=== PATIENT | male | born 1995 | race Caucasian/White ===

== ENCOUNTER 2017-04-19 06:08 | Observation (INO) | payer SELFPAY ==
[~2017-04-19 06:08] MED LIST: Etomidate 2 MG/ML 20 ML SDV IVPUSH ONE; Rocuronium 50 MG/5 ML Vial ONE; Succinylcholine 200 MG/10 ML MDV ONE
[2017-04-19] MEDS ORDERED: Ziprasidone Mesylate 20 MG Vial ONE (06:09)
[2017-04-19] MEDS ORDERED: Water For Injection, Sterile 20 ML ONE (06:10)
[2017-04-19] MEDS ORDERED: Ziprasidone Mesylate 20 MG Vial IM ONE ×2 (06:10→23:24)
[2017-04-19] MEDS ORDERED: Haloperidol Lactate 5 MG/ML SDV ONE ×2 (06:18→09:44)
[2017-04-19] MEDS ORDERED: Sodium Chloride 0.9% 1,000 ML IV ONE (06:19)
[2017-04-19] MEDS ORDERED: Haloperidol Lactate 5 MG/ML SDV IM ONE (06:20)
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
[2017-04-19] MEDS ORDERED: Propofol 200 MG/20 ML SDV ONE (06:25)
[2017-04-19] MEDS ORDERED: Bupivacaine 25%/EPINEPHrine/PF 0 ML ONE (07:06)
[2017-04-19 07:11] LABS: CHLORIDE,CL 104 mmol/L (98-107); SODIUM,NA 142 mmol/L (136-148)
[2017-04-19] MEDS ORDERED: fentaNYL 100 MCG/2 ML SDV ONE (07:30)
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
[2017-04-19] MEDS ORDERED: Neostigmine Methylsulfate 1 MG/ML 5 ML Syringe ONE (08:06)
[2017-04-19] MEDS ORDERED: Glycopyrrolate 0.2 MG/ML SDV ONE (08:06)
[2017-04-19] MEDS ORDERED: Bupivacaine 25%/EPINEPHrine/PF 30 ML ONE (08:16)
[2017-04-19] MEDS ORDERED: Phenylephrine/Normal Saline 100 MCG/ML 10 ML Syringe ONE (08:20)
[2017-04-19] MEDS ORDERED: Phenylephrine 10 MG in Sodium Chloride 0.9% 99 ML IV SCH (08:30)
[2017-04-19] MEDS ORDERED: HYDROmorphone 2 MG/ML SDV IVPUSH PRN (08:59)
[2017-04-19] MEDS ORDERED: Lactated Ringers 1,000 ML IV SCH (09:00)
--- NOTE | 2017-04-19 09:15 | PCM.PREANE ---
Preanesthetic Assessment - Anesthesia/Transfusion/Family Hx Anesthesia History: Unknown Type of Anesthesia Reaction: Unknown Family History of Anesthesia Reaction: Other (see below) (Unknown) - Review of Systems General: No Symptoms Pulmonary: Other (Ventilator) Cardiovascular: No Symptoms Gastrointestinal: No Symptoms Neurological: Confusion Other: Reports: None - Physical Assessment NPO Status Date: 04/19/17 NPO Status Time: 05:00 O2 Sat by Pulse Oximetry: 100 Respiratory Rate: 10 Vital Signs: Last Vital Signs Temp 97.9 F 04/19/17 08:33 Pulse 75 04/19/17 08:33 Resp 10 L 04/19/17 08:33 BP 80/32 L 04/19/17 08:33 Pulse Ox 100 04/19/17 08:33 ASA Class: 2E Mental Status: Alert & Oriented x3 Airway Class: Mallampati = 2 Dentition: Reports: Normal Dentition Thyro-Mental Finger Breadths: 3 Mouth Opening Finger Breadths: 3 ROM/Head Extension: Limited/Partial (C-collar in place) Lungs: Other (Ventilator) Cardiovascular: Regular Rhythm, Tachycardia - Lab Values: Laboratory Last Values WBC 3.32 K/uL (4.0-11.0) L 04/19/17 06:45 RBC 5.04 M/uL (4.50-5.90) 04/19/17 06:45 Hgb 15.3 g/dL (13.0-17.0) 04/19/17 06:45 Hct 42.9 % (38.0-50.0) 04/19/17 06:45 MCV 85.1 fL (80.0-98.0) 04/19/17 06:45 MCH 30.4 pg (27.0-32.0) 04/19/17 06:45 MCHC 35.7 g/dL (31.0-37.0) 04/19/17 06:45 RDW Std Deviation 39.0 fl (28.0-62.0) 04/19/17 06:45 RDW Coeff of Chiquita 13 % (11.0-15.0) 04/19/17 06:45 Plt Count 154 K/uL (150-400) 04/19/17 06:45 MPV 9.90 fL (7.40-12.00) 04/19/17 06:45 Neut % (Auto) 58.2 % (48.0-80.0) 04/19/17 06:45 Lymph % (Auto) 34.9 % (16.0-40.0) 04/19/17 06:45 [place] % (Auto) 4.8 % (0.0-15.0) 04/19/17 06:45 Eos % (Auto) 1.5 % (0.0-7.0) 04/19/17 06:45 Baso % (Auto) 0.6 % (0.0-1.5) 04/19/17 06:45 Neut # (Auto) 1.9 K/uL (1.4-5.7) 04/19/17 06:45 Lymph # (Auto) 1.2 K/uL (0.6-2.4) 04/19/17 06:45 [place] # (Auto) 0.2 K/uL (0.0-0.8) 04/19/17 06:45 Eos # (Auto) 0.1 K/uL (0.0-0.7) 04/19/17 06:45 Baso # (Auto) 0.0 K/uL (0.0-0.1) 04/19/17 06:45 Nucleated RBC % 0.0 /100WBC 04/19/17 06:45 Nucleated RBCs # 0 K/uL 04/19/17 06:45 Sodium 142 mmol/L (136-148) 04/19/17 06:45 Potassium 5.0 mmol/L (3.5-5.1) 04/19/17 06:45 Chloride 104 mmol/L (98-107) 04/19/17 06:45 Carbon Dioxide 23.1 mmol/L (21.0-32.0) 04/19/17 06:45 BUN 8 mg/dL (7.0-18.0) 04/19/17 06:45 Creatinine 0.7 mg/dL (0.8-1.3) L 04/19/17 06:45 Est Cr Clr Drug Dosing TNP 04/19/17 06:45 Estimated GFR (MDRD) > 60.0 ml/min 04/19/17 06:45 Glucose 107 mg/dL (74-106) H 04/19/17 06:45 Calcium 9.1 mg/dL (8.5-10.1) 04/19/17 06:45 Total Bilirubin 0.3 mg/dL (0.2-1.0) 04/19/17 06:45 AST 30 U/L (15-37) 04/19/17 06:45 ALT 33 U/L (14-63) 04/19/17 06:45 Alkaline Phosphatase 73 U/L (46-116) 04/19/17 06:45 Troponin I < 0.050 ng/mL (0.000-0.056) 04/19/17 06:45 Total Protein 8.2 g/dL (6.4-8.2) 04/19/17 06:45 Albumin 5.0 g/dL (3.4-5.0) 04/19/17 06:45 Globulin 3.2 g/dL (2.0-3.5) 04/19/17 06:45 Albumin/Globulin Ratio 1.6 (1.3-2.8) 04/19/17 06:45 Ethyl Alcohol 279 mg/dL 04/19/17 06:45 Blood Type A POSITIVE 04/19/17 06:45 Antibody Screen NEGATIVE 04/19/17 06:45 - Allergies Allergies/Adverse Reactions: Allergies Allergy/AdvReac Type Severity Reaction Status Date / Time No Known Allergies Allergy Verified 04/19/17 06:55 - Anesthesia Plan Free Text/Narrative:: I intubated this patient in the ER due to severe combative behavior pre-op. Very limited health history was able to be obtained. No family available at this time to obtain health history. - Acknowledgements Anesthesia Type Planned: General Anesthesia Pt an Appropriate Candidate for the Planned Anesthesia: Yes Alternatives and Risks of Anesthesia Discussed w Pt/Guardian: Yes Pt/Guardian Understands and Agrees with Anesthesia Plan: Yes PreAnesthesia Questionnaire HEENT History: Reports: None Cardiovascular History: Reports: None - HOME MEDS Home Medications: Home Meds . [Unable to Verify Home Med List] 04/19/17 [History] - CURRENT (IN HOUSE) MEDS Current Meds: Current Medications Hydromorphone HCl (Dilaudid) 1 mg IVPUSH Q1H PRN PRN Reason: Pain (severe 7-10) Phenylephrine HCl 10 mg/ (Sodium Chloride) 100 mls @ 24 mls/hr IV TITRATE EDI; 40 MCG/MIN PRN Reason: Protocol Lactated Ringer's (Ringers, Lactated) 1,000 mls @ 125 mls/hr IV ASDIRECTED EDI Discontinued Medications Fentanyl (Sublimaze) Confirm Administered Dose 100 mcg .ROUTE .STK-MED ONE Stop: 04/19/17 07:31 Glycopyrrolate (Robinul) Confirm Administered Dose 0.4 mg .ROUTE .STK-MED ONE Stop: 04/19/17 08:07 Haloperidol Lactate (Haldol) Confirm Administered Dose 10 mg .ROUTE .STK-MED ONE Stop: 04/19/17 06:19 Sodium Chloride (Normal Saline) 1,000 mls @ 999 mls/hr IV STAT ONE Stop: 04/19/17 07:19 Propofol (Diprivan 50 Ml) Confirm Administered Dose 50 mls @ as directed .ROUTE .STK-MED ONE Stop: 04/19/17 06:32 Bupivacaine HCl/Epinephrine Bitart (Sensorc Mpf 0.25%-Epi 1:[id number]) Confirm Administered Dose 30 mls @ as directed .ROUTE .STK-MED ONE Stop: 04/19/17 07:07 Bupivacaine HCl/Epinephrine Bitart (Sensorc Mpf 0.25%-Epi 1:[id number]) Confirm Administered Dose 30 mls @ as directed .ROUTE .STK-MED ONE Stop: 04/19/17 08:17 Propofol (Diprivan 100 Ml) 100 mls @ 600 mls/hr IV ASDIRECTED ONE Stop: 04/19/17 08:39 Neostigmine Methylsulfate (Neostigmine) Confirm Administered Dose 5 mg .ROUTE .STK-MED ONE Stop: 04/19/17 08:07 Phenylephrine HCl (Phenylephrine In Ns 100 Mcg/Ml) Confirm Administered Dose 1 mg .ROUTE .STK-MED ONE Stop: 04/19/17 08:21 Propofol (Diprivan 20 Ml) Confirm Administered Dose 200 mg .ROUTE .STK-MED ONE Stop: 04/19/17 06:26
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
--- NOTE | 2017-04-19 10:23 | PCM.POSTAN ---
POST ANESTHESIA ASSESSMENT - MENTAL STATUS Mental Status: Alert, Oriented - RESPIRATORY Respiratory Status: Respiratory Rate WNL, Airway Patent, O2 Saturation Stable - CARDIOVASCULAR CV Status: Pulse Rate WNL, Blood Pressure Stable - GASTROINTESTINAL GI Status: No Symptoms - POST OP HYDRATION Hydration Status: Adequate & Stable
[2017-04-19] MEDS ORDERED: LORazepam 2 MG/ML SDV IVPUSH PRN (10:40)
[2017-04-19] MEDS ORDERED: Haloperidol Lactate 5 MG/ML SDV IM PRN (10:41)
--- NOTE | 2017-04-19 11:30 | CR ---
EXAM DATE: 04/19/17 PATIENT'S AGE: 21 Patient: ORAL PEREIRA Facility: [place], [place] Site . Site : 1995 Study: XRay Chest [id number] 6:47:34 AM Ordering Physician: Doctor Fuentes Final Report: INDICATION: Post intubation. COMPARISON: None. TECHNIQUE: Portable AP chest. FINDINGS: Endotracheal tube identified with the tip 7 mm from the oralia. Normal size cardiac silhouette. Clear lung lindsay without evidence of acute pneumonic infiltrates or CHF. No pneumothorax or pleural effusion. IMPRESSION: 1. Endotracheal tube very close to the oralia ; Can be pulled back by 2 cm for it to be in the midtrachea. 2. No other abnormalities are identified. Dictated by Vivian Pena MD @ Apr 19 2017 6:51AM (Electronic Signature) Report Signed by Proxy. REI
--- NOTE | 2017-04-19 11:31 | CT ---
EXAM DATE: 04/19/17 PATIENT'S AGE: 21 Patient: ORAL PEREIRA Facility: [place], [place] Site . Site : 1995 Study: CT Head wo cont [id number]/6/2018 7:12:58 AM Ordering Physician: Skip Márquez Final Report: INDICATION: Patient found on conscious ; Ethanol abuse. COMPARISON: None. TECHNIQUE: CT head without intravenous contrast; coronal and sagittal reformats. FINDINGS: No evidence of intracranial hemorrhage. No mass lesions. No evidence of shift of the midline structures. The calvarium is unremarkable. The ventricular system , the subarachnoid cisterns and the cerebral sulci are unremarkable. IMPRESSION: Negative unenhanced head CT. Please note that all CT scans at this facility use dose modulation, iterative reconstruction, and/or weight-based dosing when appropriate to reduce radiation dose to as low as reasonably achievable. Dictated by Vivian Pena MD @ Apr 19 2017 7:18AM (Electronic Signature) Report Signed by Proxy. MTDD
--- NOTE | 2017-04-19 11:32 | CT ---
EXAM DATE: 04/19/17 PATIENT'S AGE: 21 Patient: ORAL PEREIRA Facility: [place], [place] Site . Site : 1995 Study: CT Spine Cervical wo cont [id number]/6/2018 7:16:31 AM Ordering Physician: Skip Márquez Final Report: INDICATION: Patient found unconscious; alcohol abuse; trauma. COMPARISON: None. TECHNIQUE: CT cervical spine without intravenous contrast; coronal and sagittal reformats. FINDINGS: No evidence of fracture or dislocation. C1-C2 articulation is unremarkable. The intervertebral disc spaces are well preserved and fail to reveal any abnormalities. No soft tissue abnormalities identified. Patient is intubated. IMPRESSION: Negative CT cervical spine without intravenous contrast. Please note that all CT scans at this facility use dose modulation, iterative reconstruction, and/or weight-based dosing when appropriate to reduce radiation dose to as low as reasonably achievable. Dictated by Vivian Pena MD @ Apr 19 2017 7:22AM (Electronic Signature) Report Signed by Proxy. MTDD
--- NOTE | 2017-04-19 11:48 | PCM.SN ---
- Free Text/Narrative Note: Patient is currently on SIMV with PS of 10. Sedation was held. Patient had a large amount of coughing and was suctioned. He is moving all extremities purposefully but not following commands or opening his eyes. He was placed on pressure support of 8 and failed. Patient was combative. His oxygen saturations were dropping his BP was elevated and he was fighting the vent. Patient was given a bolus of propofol and placed back on a continuous drip. Four point restraints were placed for patient safety. Will try to wean sedation again in 3- 4 hours and attempt to wean from ventilator.
--- NOTE | 2017-04-19 14:58 | PCM.SN ---
- Free Text/Narrative Note: Patient is becoming more agitated with stimulation. He was on SIMV pulling volumes of 800 on a pressure support of 10. Propofol sedation was held and patient became more agitated in bed. Patient was able to open his eyes to command and not yes and no to simple questions. I asked him to take a deep breath and he pulled greater than 1000 mL of volume. His respiratory rate was high given his agitation with the tube in place and with sedation being held. Given that he was following commands and taking good volumes he was extubated. The patient was able to cough afterwards and protect his airway. He was placed on nasal cannula. 20 minutes of time was spent at the patients bedside for assessment.
[2017-04-19] MEDS: Acetaminophen 325 MG Tab PO PRN (16:05)
--- NOTE | 2017-04-19 16:22 | PCM48HPAN ---
Post Anesthesia Note - EVALUATION WITHIN 48HRS OF ANESTHETIC Vital Signs in Normal Range: Yes Patient Participated in Evaluation: No (spoke to rn and girlfriend) Respiratory Function Stable: Yes (extubated) Airway Patent: Yes Cardiovascular Function Stable: Yes Hydration Status Stable: Yes Pain Control Satisfactory: Yes Nausea and Vomiting Control Satisfactory: Yes Mental Status Recovered: Yes Resp Rate: 28
--- NOTE | 2017-04-19 16:46 | PCM.OPNOTE ---
- General Post-Op/Procedure Note Date of Surgery/Procedure: 04/19/17 Operative Procedure(s): Exploration and repair of the right extensor carpi radialis tendons x 2 (brevis and longus). Repair of volar separate forearm laceration 2cm simple. Repaif of right thumb laceration 1cm simple Pre Op Diagnosis: right arm laceration - bleeding Post-Op Diagnosis: Same Anesthesia Technique: General ET Tube, Local Primary Surgeon: Radha Pelletier Cross Tie Tram Loader: none Complications: None Condition: Good Free Text/Narrative:: Intake & Output 04/19/17 04/19/17 04/19/17 07:59 15:59 23:59 Intake Total 2357 Output Total 1470 250 Balance 882 -250 [id number] implied consent due to bleeding and combative nature. Intubated prior to my arrival.
[2017-04-19] MEDS: oxyCODONE 5 MG Tab PO PRN ×2 (16:59→22:17)
--- NOTE | 2017-04-19 17:09 | PCM.SN ---
- Free Text/Narrative Note: extubated and doing well. Still sleepy and will plan overnight stay and likely home in am. Discussed with patient and significant other.
[2017-04-19] MEDS: HYDROmorphone 1 MG/ML Syringe IVPUSH PRN ×2 (17:41→19:35)
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
[2017-04-20] MEDS: oxyCODONE 5 MG Tab PO PRN ×2 (03:22→08:17)
[2017-04-20] MEDS: Acetaminophen 325 MG Tab PO PRN (08:17)
--- NOTE | 2017-04-20 10:52 | PCM.PN ---
- General Info Date of Service: 04/20/17 Admission Dx/Problem (Free Text): Admission Diagnosis/Problem Admission Diagnosis/Problem Intoxication and arm laceration Functional Status: Reports: Pain Controlled, Tolerating Diet, Ambulating, Urinating. Denies: New Symptoms - Review of Systems General: Reports: No Symptoms HEENT: Reports: No Symptoms Pulmonary: Reports: No Symptoms Cardiovascular: Reports: No Symptoms Musculoskeletal: Reports: Arm Pain Skin: Reports: No Symptoms Neurological: Reports: No Symptoms Psychiatric: Reports: No Symptoms - Patient Data Vitals - Most Recent: Last Vital Signs Temp 98.6 F 04/20/17 08:00 Pulse 95 04/20/17 08:00 Resp 16 04/20/17 08:00 BP 135/67 04/20/17 08:00 Pulse Ox 95 04/20/17 08:00 Weight - Most Recent: 195 lb 8.8 oz I&O - Last 24 Hours: Intake & Output 04/19/17 04/20/17 04/20/17 23:59 07:59 15:59 Intake Total 1243 750 Output Total 425 Balance 818 750 Lab Results Last 24 Hours: Laboratory Results - last 24 hr 04/19/17 04/19/17 Range/Units 12:16 12:16 Urine Color YELLOW Urine Appearance CLEAR Urine pH 6.5 (5.0-8.0) Ur Specific [place] 1.015 (1.001-1.035) Urine Protein NEGATIVE (NEGATIVE) mg/dL Urine Glucose (UA) NEGATIVE (NEGATIVE) mg/dL Urine Ketones NEGATIVE (NEGATIVE) mg/dL Urine Occult Blood SMALL H (NEGATIVE) Urine Nitrite NEGATIVE (NEGATIVE) Urine Bilirubin NEGATIVE (NEGATIVE) Urine Urobilinogen 0.2 (<2.0) EU/dL Ur Leukocyte Esterase NEGATIVE (NEGATIVE) Urine RBC 2-5 (0-2/HPF) Urine WBC 0-2 (0-5/HPF) Ur Epithelial Cells RARE (NONE-FEW) Urine Bacteria RARE (NEGATIVE) Urine Opiates Screen NEGATIVE (NEGATIVE) Ur Oxycodone Screen NEGATIVE (NEGATIVE) Urine Methadone Screen NEGATIVE (NEGATIVE) Ur Barbiturates Screen NEGATIVE (NEGATIVE) Ur Phencyclidine Scrn NEGATIVE (NEGATIVE) Ur Amphetamine Screen NEGATIVE (NEGATIVE) U Methamphetamines Scrn NEGATIVE (NEGATIVE) U Benzodiazepines Scrn POSITIVE (NEGATIVE) U Cocaine Metab Screen NEGATIVE (NEGATIVE) U Marijuana (THC) Screen NEGATIVE (NEGATIVE) Med Orders - Current: Current Medications Discontinued Medications Acetaminophen (Tylenol) 650 mg PO Q6H PRN PRN Reason: Fever Last Admin: 04/20/17 08:17 Dose: 650 mg Etomidate (Amidate) 40 mg IVPUSH .STK-MED ONE Stop: 04/19/17 03:01 Fentanyl (Sublimaze) Confirm Administered Dose 100 mcg .ROUTE .STK-MED ONE Stop: 04/19/17 07:31 Glycopyrrolate (Robinul) Confirm Administered Dose 0.4 mg .ROUTE .STK-MED ONE Stop: 04/19/17 08:07 Haloperidol Lactate (Haldol) Confirm Administered Dose 10 mg .ROUTE .STK-MED ONE Stop: 04/19/17 06:19 Last Admin: 04/19/17 10:42 Dose: Not Given Haloperidol Lactate (Haldol) Confirm Administered Dose 5 mg .ROUTE .STK-MED ONE Stop: 04/19/17 09:45 Last Admin: 04/19/17 10:42 Dose: Not Given Haloperidol Lactate (Haldol) 5 mg IM Q4H PRN PRN Reason: Agitation Haloperidol Lactate (Haldol) 10 mg IM ONETIME ONE Stop: 04/19/17 06:21 Last Admin: 04/19/17 06:20 Dose: 10 mg Hydromorphone HCl (Dilaudid) 1 mg IVPUSH Q1H PRN PRN Reason: Pain (severe 7-10) Hydromorphone HCl (Dilaudid) 1 mg IVPUSH Q1H PRN PRN Reason: Pain (severe 7-10) Last Admin: 04/19/17 19:35 Dose: 1 mg Sodium Chloride (Normal Saline) 1,000 mls @ 999 mls/hr IV STAT ONE Stop: 04/19/17 07:19 Last Admin: 04/19/17 10:32 Dose: Not Given Propofol (Diprivan 50 Ml) Confirm Administered Dose 50 mls @ as directed .ROUTE .STK-MED ONE Stop: 04/19/17 06:32 Last Admin: 04/19/17 10:36 Dose: Not Given Bupivacaine HCl/Epinephrine Bitart (Sensorc Mpf 0.25%-Epi 1:[id number]) Confirm Administered Dose 30 mls @ as directed .ROUTE .STK-MED ONE Stop: 04/19/17 07:07 Bupivacaine HCl/Epinephrine Bitart (Sensorc Mpf 0.25%-Epi 1:[id number]) Confirm Administered Dose 30 mls @ as directed .ROUTE .STK-MED ONE Stop: 04/19/17 08:17 Propofol (Diprivan 100 Ml) 100 mls @ 600 mls/hr IV ASDIRECTED ONE Stop: 04/19/17 08:39 Last Admin: 04/19/17 10:36 Dose: Not Given Phenylephrine HCl 10 mg/ (Sodium Chloride) 100 mls @ 24 mls/hr IV TITRATE EDI; 40 MCG/MIN PRN Reason: Protocol Last Titration: 04/19/17 12:40 Dose: 0 mcg/min, 0 mls/hr Lactated Ringer's (Ringers, Lactated) 1,000 mls @ 125 mls/hr IV ASDIRECTED EDI Last Admin: 04/19/17 08:33 Dose: 125 mls/hr Propofol (Diprivan 100 Ml) 100 mls @ 2.661 mls/hr IV TITRATE EDI; 5 MCG/KG/MIN PRN Reason: Protocol Last Titration: 04/19/17 13:40 Dose: 0 mcg/kg/min, 0 mls/hr Propofol (Diprivan 50 Ml) 50 mls @ 53.22 mls/hr IV TITRATE EDI; 100 MCG/KG/MIN PRN Reason: Protocol Sterile Water (Sterile Water For Injection) Confirm Administered Dose 20 mls @ as directed .ROUTE .STK-MED ONE Stop: 04/19/17 06:11 Lorazepam (Ativan) 0 mg IVPUSH Q4H PRN; Protocol PRN Reason: Agitation Neostigmine Methylsulfate (Neostigmine) Confirm Administered Dose 5 mg .ROUTE .STK-MED ONE Stop: 04/19/17 08:07 Oxycodone HCl (Oxycodone) 10 mg PO Q4H PRN PRN Reason: Pain Last Admin: 04/20/17 08:17 Dose: 10 mg Phenylephrine HCl (Phenylephrine In Ns 100 Mcg/Ml) Confirm Administered Dose 1 mg .ROUTE .STK-MED ONE Stop: 04/19/17 08:21 Propofol (Diprivan 20 Ml) Confirm Administered Dose 200 mg .ROUTE .STK-MED ONE Stop: 04/19/17 06:26 Last Admin: 04/19/17 10:36 Dose: Not Given Rocuronium [place] (Zemuron) 100 mg .ROUTE .STK-MED ONE Stop: 04/19/17 03:01 Succinylcholine Chloride (Quelicin) 200 mg .ROUTE .STK-MED ONE Stop: 04/19/17 03:01 Ziprasidone (Geodon) 20 mg IM ONETIME ONE Stop: 04/19/17 23:25 Last Admin: 04/19/17 06:10 Dose: 20 mg Ziprasidone (Geodon) Confirm Administered Dose 20 mg .ROUTE .STK-MED ONE Stop: 04/19/17 06:10 - Exam General: Alert, Oriented, Cooperative HEENT: Pupils Equal, Pupils Reactive Lungs: Normal Respiratory Effort Extremities: Other (splint in plae and clean. Some bruising as expected. ) Skin: Warm, Dry Wound/Incisions: Healing Well, Dressing Dry and Intact Neurological: No New Focal Deficit Psy/Mental Status: Alert, Normal Affect, Normal Mood - Problem List & Annotations (1) Laceration of arm, right, complicated SNOMED Code(s): 912233308, 965456944, 680750584 Code(s): S41.111A - LACERATION W/O FOREIGN BODY OF RIGHT UPPER ARM, INIT ENCNTR Status: Acute Priority: High Qualifiers: Encounter type: initial encounter Qualified Code(s): S41.111A - Laceration without foreign body of right upper arm, initial encounter (2) Alcohol intoxication SNOMED Code(s): 87587762 Code(s): F10.929 - ALCOHOL USE, UNSPECIFIED WITH INTOXICATION, UNSPECIFIED Status: Acute Priority: High Qualifiers: Complication of substance-induced condition: with delirium Qualified Code(s ): F10.921 - Alcohol use, unspecified with intoxication delirium (3) Bleeding SNOMED Code(s): 165428821 Code(s): R58 - HEMORRHAGE, NOT ELSEWHERE CLASSIFIED Status: Acute Priority: High - Problem List Review Problem List Initiated/Reviewed/Updated: Yes - My Orders Last 24 Hours: My Active Orders 04/19/17 17:06 Admission Status [Patient Status] [ADT] Routine 04/20/17 10:47 Ready for Discharge [RC] PER UNIT ROUTINE - Plan Plan:: Splint continues - follow up for customs splinting in about 10 days. Appt in discharge. Appreciate critical care assistance from Dr Hurst. Baseline status resumed. Notes provided for work and court date that he missed yesterday while intubated. Home today on oxycodone if needed. Discussed alcohol and no use with oxycodone.
--- NOTE | 2017-04-20 10:56 | PCM.DCSUM1 ---
Discharge Summary - Hospital Course Free Text/Narrative:: admitted 3/6 early am from ER to surgery for bleeding laceration to the right forearm. Intubated prior to my initial evaluation due to combativeness and intoxication. In OR, Tendons/muscles ECRL and ECRB involved and repaired. Brachioradialis with small cut and left with >60% intact. Maintained intubated until safely weaned with assistance of Dr Hurst for critical care. Extubated later in the afternoon and maintained in the ICU over night. OK to discharge today as back to stable baseline. Splint in place. HPI Initial Comments: intoxication and laceration with bleeding Brief History: admitted 3/6 early am from ER to surgery for bleeding laceration to the right forearm. Intubated prior to my initial evaluation due to combativeness and intoxication. In OR, Tendons/muscles ECRL and ECRB involved and repaired. Brachioradialis with small cut and left with >60% intact. Maintained intubated until safely weaned with assistance of Dr Hurst for critical care. Extubated later in the afternoon and maintained in the ICU over night. OK to discharge today as back to stable baseline. Splint in place. - Discharge Data Discharge Date: 04/20/17 Discharge Disposition: Home, Self-Care 01 Condition: Stable - Discharge Diagnosis/Problem(s) (1) Laceration of arm, right, complicated SNOMED Code(s): 298552025, 791868239, [id number] ICD Code: S41.111A - LACERATION W/O FOREIGN BODY OF RIGHT UPPER ARM, INIT ENCNTR Status: Acute Priority: High Qualifiers: Encounter type: initial encounter Qualified Code(s): S41.111A - Laceration without foreign body of right upper arm, initial encounter (2) Alcohol intoxication SNOMED Code(s): 82825587 ICD Code: F10.929 - ALCOHOL USE, UNSPECIFIED WITH INTOXICATION, UNSPECIFIED Status: Acute Priority: High Qualifiers: Complication of substance-induced condition: with delirium Qualified Code(s ): F10.921 - Alcohol use, unspecified with intoxication delirium (3) Bleeding SNOMED Code(s): 178394220 ICD Code: R58 - HEMORRHAGE, NOT ELSEWHERE CLASSIFIED Status: Acute Priority: High - Patient Summary/Data Operative Procedure(s) Performed: Exploration and repair of the right extensor carpi radialis tendons x 2 (brevis and longus). Repair of volar separate forearm laceration 2cm simple. Repaif of right thumb laceration 1cm simple Complications: none - Patient Instructions Diet: Usual Diet as Tolerated Activity: Elevate Extremity, No Lifting Over 10 Pounds, No Strenuous Activities Driving: Do Not Drive (while taking oxycodone) Showering/Bathing: May Shower (keeping splint clean and dry - cover with bag) Wound/Incision Care: Keep Operative Site/Wound Site Clean and Dry Notify Provider of: Fever, Increased Pain, Swelling and Redness, Drainage, Nausea and/or Vomiting - Discharge Plan Prescriptions/Med Rec: oxyCODONE 5 mg PO Q4HR PRN #30 tab PRN Reason: pain severe Home Medications: Home Meds oxyCODONE 5 mg PO Q4HR PRN #30 tab 04/20/17 [Rx] Patient Handouts: Alcohol Intoxication, [id number], Sutured Wound Care, Easy- to-Read, Tendon Repair Referrals: Radha Pelletier MD [Physician] - 04/28/17 10:00 am - Discharge Summary/Plan Comment DC Time >30 min.: No - Patient Data Vitals - Most Recent: Last Vital Signs Temp 98.6 F 04/20/17 08:00 Pulse 95 04/20/17 08:00 Resp 16 04/20/17 08:00 BP 135/67 04/20/17 08:00 Pulse Ox 95 04/20/17 08:00 Weight - Most Recent: 195 lb 8.8 oz I&O - Last 24 hours: Intake & Output 04/19/17 04/20/17 04/20/17 23:59 07:59 15:59 Intake Total 1243 750 Output Total 425 Balance 818 750 Lab Results - Last 24 hrs: Laboratory Results - last 24 hr 04/19/17 04/19/17 Range/Units 12:16 12:16 Urine Color YELLOW Urine Appearance CLEAR Urine pH 6.5 (5.0-8.0) Ur Specific [place] 1.015 (1.001-1.035) Urine Protein NEGATIVE (NEGATIVE) mg/dL Urine Glucose (UA) NEGATIVE (NEGATIVE) mg/dL Urine Ketones NEGATIVE (NEGATIVE) mg/dL Urine Occult Blood SMALL H (NEGATIVE) Urine Nitrite NEGATIVE (NEGATIVE) Urine Bilirubin NEGATIVE (NEGATIVE) Urine Urobilinogen 0.2 (<2.0) EU/dL Ur Leukocyte Esterase NEGATIVE (NEGATIVE) Urine RBC 2-5 (0-2/HPF) Urine WBC 0-2 (0-5/HPF) Ur Epithelial Cells RARE (NONE-FEW) Urine Bacteria RARE (NEGATIVE) Urine Opiates Screen NEGATIVE (NEGATIVE) Ur Oxycodone Screen NEGATIVE (NEGATIVE) Urine Methadone Screen NEGATIVE (NEGATIVE) Ur Barbiturates Screen NEGATIVE (NEGATIVE) Ur Phencyclidine Scrn NEGATIVE (NEGATIVE) Ur Amphetamine Screen NEGATIVE (NEGATIVE) U Methamphetamines Scrn NEGATIVE (NEGATIVE) U Benzodiazepines Scrn POSITIVE (NEGATIVE) U Cocaine Metab Screen NEGATIVE (NEGATIVE) U Marijuana (THC) Screen NEGATIVE (NEGATIVE) Med Orders - Current: Current Medications Discontinued Medications Acetaminophen (Tylenol) 650 mg PO Q6H PRN PRN Reason: Fever Last Admin: 04/20/17 08:17 Dose: 650 mg Etomidate (Amidate) 40 mg IVPUSH .STK-MED ONE Stop: 04/19/17 03:01 Fentanyl (Sublimaze) Confirm Administered Dose 100 mcg .ROUTE .STK-MED ONE Stop: 04/19/17 07:31 Glycopyrrolate (Robinul) Confirm Administered Dose 0.4 mg .ROUTE .STK-MED ONE Stop: 04/19/17 08:07 Haloperidol Lactate (Haldol) Confirm Administered Dose 10 mg .ROUTE .STK-MED ONE Stop: 04/19/17 06:19 Last Admin: 04/19/17 10:42 Dose: Not Given Haloperidol Lactate (Haldol) Confirm Administered Dose 5 mg .ROUTE .STK-MED ONE Stop: 04/19/17 09:45 Last Admin: 04/19/17 10:42 Dose: Not Given Haloperidol Lactate (Haldol) 5 mg IM Q4H PRN PRN Reason: Agitation Haloperidol Lactate (Haldol) 10 mg IM ONETIME ONE Stop: 04/19/17 06:21 Last Admin: 04/19/17 06:20 Dose: 10 mg Hydromorphone HCl (Dilaudid) 1 mg IVPUSH Q1H PRN PRN Reason: Pain (severe 7-10) Hydromorphone HCl (Dilaudid) 1 mg IVPUSH Q1H PRN PRN Reason: Pain (severe 7-10) Last Admin: 04/19/17 19:35 Dose: 1 mg Sodium Chloride (Normal Saline) 1,000 mls @ 999 mls/hr IV STAT ONE Stop: 04/19/17 07:19 Last Admin: 04/19/17 10:32 Dose: Not Given Propofol (Diprivan 50 Ml) Confirm Administered Dose 50 mls @ as directed .ROUTE .Springr-MED ONE Stop: 04/19/17 06:32 Last Admin: 04/19/17 10:36 Dose: Not Given Bupivacaine HCl/Epinephrine Bitart (Sensorc Mpf 0.25%-Epi 1:[id number]) Confirm Administered Dose 30 mls @ as directed .ROUTE .STK-MED ONE Stop: 04/19/17 07:07 Bupivacaine HCl/Epinephrine Bitart (Sensorc Mpf 0.25%-Epi 1:[id number]) Confirm Administered Dose 30 mls @ as directed .ROUTE .Springr-MED ONE Stop: 04/19/17 08:17 Propofol (Diprivan 100 Ml) 100 mls @ 600 mls/hr IV ASDIRECTED ONE Stop: 04/19/17 08:39 Last Admin: 04/19/17 10:36 Dose: Not Given Phenylephrine HCl 10 mg/ (Sodium Chloride) 100 mls @ 24 mls/hr IV TITRATE EDI; 40 MCG/MIN PRN Reason: Protocol Last Titration: 04/19/17 12:40 Dose: 0 mcg/min, 0 mls/hr Lactated Ringer's (Ringers, Lactated) 1,000 mls @ 125 mls/hr IV ASDIRECTED EDI Last Admin: 04/19/17 08:33 Dose: 125 mls/hr Propofol (Diprivan 100 Ml) 100 mls @ 2.661 mls/hr IV TITRATE EDI; 5 MCG/KG/MIN PRN Reason: Protocol Last Titration: 04/19/17 13:40 Dose: 0 mcg/kg/min, 0 mls/hr Propofol (Diprivan 50 Ml) 50 mls @ 53.22 mls/hr IV TITRATE EDI; 100 MCG/KG/MIN PRN Reason: Protocol Sterile Water (Sterile Water For Injection) Confirm Administered Dose 20 mls @ as directed .ROUTE .STBettyvision-MED ONE Stop: 04/19/17 06:11 Lorazepam (Ativan) 0 mg IVPUSH Q4H PRN; Protocol PRN Reason: Agitation Neostigmine Methylsulfate (Neostigmine) Confirm Administered Dose 5 mg .ROUTE .STK-MED ONE Stop: 04/19/17 08:07 Oxycodone HCl (Oxycodone) 10 mg PO Q4H PRN PRN Reason: Pain Last Admin: 04/20/17 08:17 Dose: 10 mg Phenylephrine HCl (Phenylephrine In Ns 100 Mcg/Ml) Confirm Administered Dose 1 mg .ROUTE .STK-MED ONE Stop: 04/19/17 08:21 Propofol (Diprivan 20 Ml) Confirm Administered Dose 200 mg .ROUTE .STK-MED ONE Stop: 04/19/17 06:26 Last Admin: 04/19/17 10:36 Dose: Not Given Rocuronium [place] (Zemuron) 100 mg .ROUTE .STK-MED ONE Stop: 04/19/17 03:01 Succinylcholine Chloride (Quelicin) 200 mg .ROUTE .STK-MED ONE Stop: 04/19/17 03:01 Ziprasidone (Geodon) 20 mg IM ONETIME ONE Stop: 04/19/17 23:25 Last Admin: 04/19/17 06:10 Dose: 20 mg Ziprasidone (Geodon) Confirm Administered Dose 20 mg .ROUTE .STK-MED ONE Stop: 04/19/17 06:10 *Q Meaningful Use (DIS) - VTE *Q VTE Criteria *Q: VTE Anticoagulation Contraindications: Med/TX Not Indicated/Need - Stroke *Q Stroke Criteria *Q: Anticoagulation Contraindications Stroke *Q: Med/TX Not Indicated/Need Antithrombotic Contraindications Stroke *Q: Med/TX Not Indicated/Need Statin Contraindications Stroke *Q: Med/TX Not Indicated/Need Rehabilitation Assessment Contraindication *Q: Med/tx not indicated/need - AMI *Q AMI Criteria *Q: Aspirin Contraindications AMI *Q: Med/TX Not Indicated/Need Statin Contraindications AMI *Q: Med/TX Not Indicated/Need
== END 2017-04-20 10:00 | disposition home or self-care (01) ==
LOC: MW.ED 06:08 → EDBD 06:08 → MW.SDS 06:57 → INTOOBSV 09:34 → MW.ICU 09:34
PROVIDERS: ADMIT Plastic Surgery; ATTEND Plastic Surgery
DX: S51.811A Laceration without foreign body of right forearm, initial encounter (principal); F10.921 Alcohol use, unspecified with intoxication delirium; X78.0XXA Intentional self-harm by sharp glass, initial encounter; Y90.8 Blood alcohol level of 240 mg/100 ml or more
CPT/HCPCS: 25275; 36415; 70450; 71045; 72125; 80053; 80305; 81001; 84484; 85025; 86850; 86900; 86901; 96360; 96365; 96372; 99291; A9270; G0378; G0390; G0480; J0330; J1170; J1630; J2370; J3486; J7030; J7120; 01810; 94002; 99284; J3010